=== PATIENT | female | born 1985 | race Caucasian/White ===

== ENCOUNTER 2021-01-23 17:27 | Emergency (ER) | payer OTHER ==
[~2021-01-23] VITALS: Ht 170.2 cm; Wt 104.3 kg
--- NOTE | 2021-01-23 17:44 | NUR ---
C/O COUGHING X 4 DAYS. PATIENT A/OX4, BREATHING EVEN AND UNLABORED, NO SOB NOTED. ASSISTED TO BED.
--- NOTE | 2021-01-23 17:45 | NUR ---
GALDINO SHEN AT BEDSIDE FOR EVAL
[2021-01-23] MEDS ORDERED: DEXAMETHASONE SOD PHOSPHATE 10 MG/ML VIAL ONE (18:17)
[2021-01-23 18:29] VITALS: BP 138/85
[2021-01-23] MEDS ORDERED: DEXAMETHASONE SOD PHOSPHATE 4 MG/ML VIAL IM ONE (18:30)
--- NOTE | 2021-01-23 18:30 | NUR ---
Patient discharged to home at this time. Medically stable and cleared for discharge. all discharge instrutions provided. pt verbalized understanding.
== END 2021-01-23 18:28 | disposition home or self-care (01) ==
LOC: ER 17:34
DX: J20.9 Acute bronchitis, unspecified (principal); Z20.822 Contact with and (suspected) exposure to COVID-19; Z87.01 Personal history of pneumonia (recurrent); Z88.8 Allergy status to other drugs, medicaments and biological substances
CPT/HCPCS: 71045; 87426; 96372; 99284; C9803; J1100